=== PATIENT | female | born 1985 | race Hispanic/Latino ===

== ENCOUNTER 2017-03-10 00:39 | Inpatient (IN) | payer MEDICAID ==
[2017-03-10] VITALS (9 sets, daily range): BP systolic 99–110; BP diastolic 45–56; PULSE 75–83; RESP 14–16; O2SAT 99–100
[~2017-03-10] VITALS: Ht 157.5 cm; Wt 66.7 kg
[~2017-03-10 00:39] MED LIST: DOCU-41 PO; HYDR-3479 PO; IBUP800T28 PO; NOMED
[2017-03-10] MEDS ORDERED: Lactated Ringer's 1,000 ML IV PRN (01:19)
[2017-03-10] MEDS ORDERED: Carboprost 250 mCg/mL Inj IM PRN ×2 (01:20→07:30)
[2017-03-10] MEDS ORDERED: Hemorrhage Kit, Post Partum XX ONE ×2 (01:20→07:30)
[2017-03-10] MEDS ORDERED: Ondansetron 2 mg/mL 2 mL Inj IVPUSH PRN ×3 (01:20→19:05)
[2017-03-10] MEDS ORDERED: Sodium Chloride LOK Flush 10 mL Syringe IVFLUSH PRN (01:20)
[2017-03-10] MEDS ORDERED: Oxytocin 30 Units/500 mL LR 30 UNITS in IV Premix 1 EACH IV PRN ×2 (01:20→07:30)
[2017-03-10] MEDS ORDERED: Methylergonovine 0.2 mg/mL Inj IM PRN ×2 (01:20→07:30)
[2017-03-10] MEDS ORDERED: Oxytocin 10 Unit/mL Inj IM PRN ×2 (01:20→07:30)
[2017-03-10 01:58] LABS: Mean Corpuscular Hemoglobin 31.2 pg (27.0-35.0); Mean Corpuscular Volume 91.5 fL (81-100)
[2017-03-10] MEDS ORDERED: CHOL400T30 PO (02:14)
[2017-03-10] MEDS ORDERED: PREN-12 PO (02:14)
[2017-03-10] MEDS: fentaNYL-PF 50 mCg/mL 2 mL Inj IVPUSH PRN ×2 (05:54→06:39)
[2017-03-10] MEDS ORDERED: oxyCODONE-Acetamin 5-325 mg Tablet PO PRN ×2 (07:30→19:05)
[2017-03-10] MEDS ORDERED: Witch Hazel-Glycerin Pads TOPICAL PRN (07:30)
[2017-03-10] MEDS ORDERED: LANOlin HPA 7 Gm Ointment TOPICAL PRN (07:30)
[2017-03-10] MEDS ORDERED: Benzocaine (Dermoplast) 20% 60 Gm Spray TOPICAL PRN (07:30)
[2017-03-10 07:38] LABS: Mean Corpuscular Hemoglobin 31.4 pg (27.0-35.0); Mean Corpuscular Volume 92.8 fL (81-100)
[2017-03-10] MEDS: Ascorbic Acid 500 mg Tablet PO SCH (08:00)
--- NOTE | 2017-03-10 08:11 | NUR ---
Three total doses of fentanyl 100mcg administered to pt from [address]. This was during delivery of the placenta, two fentanyl vials were scanned, one was not scanned. Rodo MOTTA witnessed the 627 and 634 fentanyl administrations.
[2017-03-10] MEDS ORDERED: Phenylephrine/NS-PF 100 mCg/mL 5 mL Syringe IVPUSH ONE (09:33)
--- NOTE | 2017-03-10 09:35 | OP ---
[address] [address] OPERATIVE REPORT PATIENT: CHRIS UPTON : 1985 MR#: [id number] ADMIT: 03/10/2017 JOB ID: [id number] DATE OF SURGERY: 03/10/2017 SURGEON: Juancarlos Neil M.D. PREOPERATIVE DIAGNOSIS(ES): A 31-year-old 4, para 3, at 39 weeks, active labor, spontaneous rupture of membranes. POSTOPERATIVE DIAGNOSIS(ES): 1. A 31-year-old 4, para 4, active labor, spontaneous rupture of membranes. 2. Retained placenta. 3. hemorrhage. DELIVERY NOTE: The patient is a 31-year-old 4, para 4 now who came to Labor and Delivery at 2 o'clock in the morning complaining of spontaneous rupture of membranes. The patient was examined. On the pelvic examination, the cervix was 5 cm dilated, 70% effaced, -2 station. Clear amniotic fluid. She was admitted for delivery. The patient was started on Pitocin at 3 o'clock a.m. and by 5 a.m., when the Pitocin was running at 40 units/minute. At 5:55 a.m. she progressed to full dilation. She has been pushing for 5 minutes and she underwent spontaneous vaginal delivery at 6:10 a.m., delivered a female with weight 2865 g, Apgars 6 at one minute and 9 at five minutes. She had a small first degree midline laceration that was repaired with 2-0 Vicryl. The placenta did not deliver. After 30 minutes of waiting, placenta was still undelivered. The patient had some hemorrhage. She received two doses of IV fentanyl half an hour apart 100 mcg for pain relief. The umbilical cord was examined and found to be a three-vessel cord. 50 units of Pitocin were diluted in 60 cc of normal saline and the solution was injected through the Angiocath into the umbilical vein. After that, the vein was clamped. The umbilical cord was clamped and let to stay for 15 minutes. At 7:03 a.m., the placenta was delivered in one piece without any complications. The patient received 0.2 mg of Methergine IM to control the bleeding. The Pitocin was started shortly after delivery of the . Total estimated blood loss was 700 mL. All the instrument and sponge counts were correct x2. The placenta was re-examined one more time, found to be intact and was sent to Pathology.
[2017-03-10] MEDS ORDERED: Lactated Ringer's 2,000 ML IV SCH (10:20)
--- NOTE | 2017-03-10 10:22 | HP ---
[address] [address] HISTORY AND PHYSICAL PATIENT: CHRIS UPTON : 1985 MR#: [id number] ADMIT: 03/10/2017 JOB ID: [id number] HISTORY OF PRESENT ILLNESS: The patient is a 31-year-old 4, para 3 at 38 weeks and five days comes to Labor and Delivery with complaint of contractions. She is having some vaginal spotting. On a monitor, heart rate tracing is reactive, category 1. Baseline 140 beats per minute. The patient had care with the [facility], it was relatively uncomplicated. She had marginal placenta previa that during was resolved. Her hemoglobin A1c was 6% at the beginning of , but 1 hour glucose tolerance testing was normal. SURGICAL HISTORY: History of two spontaneous vaginal deliveries at term, one in 2006, one in 2013. Both of them at 38+ weeks. Uncomplicated. SOCIAL HISTORY: The patient denies smoking, alcohol, illicit recreational drug use. ALLERGIES: NKDA. FAMILY HISTORY: Diabetes. PHYSICAL EXAMINATION: Vital signs: Blood pressure 110/62, temperature 36.6, pulse 80, respiratory rate 16. General: She is awake, alert, oriented x3. HEENT: PERRLA. Chest: Clear. Good respiratory effort. Cardiovascular: Regular rate and rhythm. Abdomen is gravid. Nondistended. Tender with contractions that occur at frequency of each 5-6 minutes. Pelvic examination: The cervix is 5 cm dilated, 80% effaced, -2 station. Slight bleeding, ruptured membranes. ROM testing is positive. Amniotic fluid is clear. Extremities: No pitting edema. ASSESSMENT AND PLAN: 1. A 31-year-old 3, para 2, at 38 weeks and five days spontaneous rupture of membranes. 2. Active labor being admitted for delivery. labs were reviewed. Labor and delivery labs were sent. IV hydration will be started with lactated Ringer at 125 mL/hour. The patient declines epidural. Pain management will be provided with fentanyl p.r.n. Augmentation with Pitocin will be started as needed. We will anticipate spontaneous vaginal delivery.
[2017-03-10] MEDS: Lactated Ringer's 1,000 ML IV SCH ×3 (14:31→23:30)
--- NOTE | 2017-03-10 15:55 | PCM.PNOBPP ---
Subjective Date of Service Mar 10, 2017 Post : Spontaneous Vaginal Delivery Lochia: Light Gastrointestinal: Good Appetite, No N/V Labs Laboratory Tests 03/10/17 07:27: White Blood Count 12.0, Red Blood Count 3.73, Mean Corpuscular Volume 92.8, Mean Corpuscular Hemoglobin 31.4, Mean Corpuscular Hemoglobin Concent 33.8, Red Cell Distribution Width 13.1, Platelet Count 143 03/10/17 11:56: Hemoglobin 10.4, Hematocrit 31.2 Laboratory Tests 72 Hours Test 03/10/17 01:45 03/10/17 07:27 03/10/17 11:56 White Blood Count 10.1th/mm3 (3.8-10.1) 12.0th/mm3 (3.8-10.1) Red Blood Count 4.23mil/mm3 (3.90-5.20) 3.73mil/mm3 (3.90-5.20) Hemoglobin 13.2g/dL (12.0-15.6) 11.7g/dL (12.0-15.6) 10.4g/dL (12.0-15.6) Hematocrit 38.7% (35.0-46.0) 34.6% (35.0-46.0) 31.2% (35.0-46.0) Mean Corpuscular Volume 91.5fL (81-100) 92.8fL (81-100) Mean Corpuscular Hemoglobin 31.2pg (27.0-35.0) 31.4pg (27.0-35.0) Mean Corpuscular Hemoglobin Concent 34.1% (32.0-37.0) 33.8% (32.0-37.0) Red Cell Distribution Width 13.2% (12.3-15.4) 13.1% (12.3-15.4) Platelet Count 158bil/L (150-400) 143bil/L (150-400) Exam Vital Signs Vital Signs 109/61, 90, 14, 36.5 Vital Signs: VS reviewed, stable Exam Abdomen: Fundus firm Extremities: Edema 1+ Lungs: Clear to Auscultation, Clear to Percussion Heart: Regular Rate/Rhythm, Normal S1, Normal S2 General: Alert, Oriented X3 OB Post Assessment/Plan Assessment The patient is a 31-year-old 4, para 4 1. PPD#0 S/P 2. Desires sterilization. Sterilization consent was signed at the office more than 30 days ago. Today earlier in the morning and again shortly prior to schedule surgery patient was counseled again with transition assistant of grain mill products inspector. R/B/A of tubal ligation were discussed with pt in details risk includes and not limited to risk of regret as tubal ligation is permanent, risk of failure, risk of ectopic , risk of need to hormonal treatment in future is she develops heavy menses. Reviewed risk of surgery which includes and not limited to risk of anesthesia, infection, bleeding, injury to other organs and second surgery. R /B/A of of LARCS and male sterilization were discussed. Informed surgical consent was signed today. Patient desires to proceed with tubal ligation as scheduled today. Surgery is coordinated with Dr.Porter , for repair of umbilical hernia. 3. Anemia secondary to hemorrhage, asymptomatic, repeat H/H 10.4/31% . VSS. Mitchell Donovan MD Mar 10, 2017 15:55
[2017-03-10] MEDS ORDERED: Lactated Ringer's 1,000 ML IV ONE ×2 (16:42→17:44)
[2017-03-10] MEDS ORDERED: CeFAZolin 2 Gm/50 mL D5W Duplex Bag IV ONE (16:45)
[2017-03-10] MEDS ORDERED: Lactated Ringer's 1,000 ML IV SCH (17:08)
[2017-03-10] MEDS ORDERED: Lactated Ringer's 500 ML IV PRN (17:08)
[2017-03-10] MEDS ORDERED: MetoCLOpramide 5 mg/mL 2 mL Inj IVPUSH PRN (17:10)
[2017-03-10] MEDS ORDERED: fentaNYL-PF 50 mCg/mL 2 mL Inj IVPUSH PRN (17:10)
[2017-03-10] MEDS ORDERED: Atropine 0.4 mg/mL Inj IVPUSH PRN (17:10)
[2017-03-10] MEDS ORDERED: HYDROmorphone 1 mg/mL Inj IVPUSH PRN (17:10)
[2017-03-10] MEDS ORDERED: Dexamethasone 4 mg/mL Inj IVPUSH PRN (17:10)
[2017-03-10] MEDS ORDERED: EPHEDrine Sulfate 50 mg/mL Inj IVPUSH PRN (17:10)
[2017-03-10] MEDS ORDERED: Phenylephrine 10,000 mCg/mL Inj IVPUSH PRN (17:10)
--- NOTE | 2017-03-10 17:12 | PCM.HPANE ---
Patient Data Surgeon Admitting Provider:Jeremias Concepcion MD Attending Provider:Jeremias Concepcion MD Primary Care Physician:Lola Rivera MD Other Provider: Reason for Visit Active Labor ACTIVE LABOR Ht/WT & BMI Body Mass Index Allergies Coded Allergies: No Known Allergies (Verified , 06/15/13) Past Anesthesia History Anesthesia History: Denies:: Abnormal Airway, Anesthesia Reactions, Difficult Intubation, Fam Anesthesia Reaction, Fam Malignant Hypertherm, Malignant Hyperthermia Diabetes History Hx Diabetes?: No MRSA MRSA: No Medications Hypertension Medication: No Home Meds Incl Beta Ashkan: No Active Scripts Docusate Sodium (Colace)100 Mg [id number] Mg PO TID PRN For Constipation #60 CAPSULE Ref 1 Prov:Raghav Clarke MD 12/28/13 Ibuprofen 800 Mg [id number] Mg PO QID PRN For Pain #50 TABLET Ref 1 Prov:Raghav Clarke MD 12/28/13 Hydrocodone/Acetaminophen (Vicodin 5-300 mg Tablet)1 Each Tablet1-2 Each PO Q6 PRN For Pain #40 TABLET Ref 0 Prov:Raghav Clarke MD 12/28/13 Reported Medications Cholecalciferol (Vitamin D3) (Vitamin D)400 Unit [id number] Unit PO DAILY #1 BOTTLE Ref 0 03/10/17 Vit W-Ca,Fe,FA(<1 mg) ( Formula)1 Each Tablet1 Each PO DAILY 03/10/17 No Historical Medication Ea 06/15/13 History History of ENT Problems?: No HEENT History: Denies:: Abnormal Airway Cataracts Difficult Intubation Dysphagia Glaucoma Hearing Problem Sinus Problem TMJ Denture Type: None Teeth Condition: Within Normal Limits Hx of Heart Problems?: No Cardiovascular History: Denies:: AICD Abdominal Aortic Aneurism Atrial Fibrillation Cardiac Surgery Chest Pain Congestive Heart Failure Coronary Artery Disease Edema Heart Murmur Hypertension Irregular Heartbeat Pacemaker Peripheral Vascular Rheumatic Fever Thrombophlebitis Valvular Heart Disease Hx of Respiratory Problem?: No Respiratory History: Denies:: Asthma COPD Chest Surgery Cough Dyspnea Emphysema Hemoptysis Oxygen Administration Pneumonia Pulmonary Embolism Tuberculosis Use of C-PAP Machine Use of Inhalers / NEBS Hx Neurologic Problems?: No Neurological History: Denies:: Alzheimer's Disease CVA Dementia Dizziness Headaches Multiple Sclerosis Parkinson's Disease Peripheral Neuropathy Seizures TIA Hx of GI Problems?: No Hx of Problems?: No Other History/Comment Post- <24 hours Hx Musculoskeletal Problems?: No Hx Surgeries?: No Hx Any Other Health Problems?: No Hx Alcohol Use: No Smoking Status: Never Smoker Stop/Bang ARASELI Risk Assessment: Low Risk, <3 Yes Risk Assessment Category Category 1A: Patient has history of documented sleep apnea, and HAS NOT received any narcotic, sedative or anesthesia administration during this stay. Category 1B: Patient has history of documented sleep apnea, and HAS received any narcotic , sedative or anesthesia administration during this stay Category 2: Patient has SUSPECTED Obstructive Sleep Apnea, and HAS received any narcotic , sedative or anesthesia administration during this stay. Category 3: Patient has SUSPECTED Obstructive Sleep Apnea and HAS NOT received narcotic, sedative or anesthesia administration during this stay. Category 4: Outpatient in Procedural Areas with known sleep apnea or who screen positive for High Risk via the STOP/BANG questionnaire. Exam Exam General Appearance: Alert, Oriented X3, Cooperative, No Acute Distress HEENT/AIRWAY: MP 2 Lungs: Clear to Auscultation, Normal Air Movement Heart: Exam Unremarkable, Regular Rate/Rhythm, No Murmurs/Rubs/Gallops Meds/Labs/Diagnostics Admission Meds Current Medications Lactated Ringer's (Lr) 1,000 ml @ 125 mls/hr Q8H IV Last administered on t 14:31; Start 03/10/17 at 07:30 Labs Test 03/10/17 07:27 03/10/17 11:56 White Blood Count 12.0th/mm3 (3.8-10.1) Red Blood Count 3.73mil/mm3 (3.90-5.20) Mean Corpuscular Volume 92.8fL (81-100) Mean Corpuscular Hemoglobin 31.4pg (27.0-35.0) Mean Corpuscular Hemoglobin Concent 33.8% (32.0-37.0) Red Cell Distribution Width 13.1% (12.3-15.4) Platelet Count 143bil/L (150-400) Hemoglobin 10.4g/dL (12.0-15.6) Hematocrit 31.2% (35.0-46.0) Plan Impression Patient chart reviewed, patient interviewed and anesthestic plan with risks, benefits, and alternatives discussed, and informed consent obtained. NPO per Anesth. Guidelines: Yes ASA Physical Status: ASA2 Mod Systemic Disease Anesthetic Plan: SAB Bene/Risks/Altern/Consents: Yes HP Complete Prior to Induction: Yes Other Consented via forestry farm laborer. Patient was informed of safety profile of spinal anesthesia over general anesthesia given the still- present physiologic changes of , This is an elective procedure and she wishes to proceed after all of her question have been answered. Yohannes New MD Mar 10, 2017 15:54
[2017-03-10] MEDS ORDERED: Bupivacaine-MPF 0.5% W/EPI 30 mL Inj INJ ONE (17:32)
--- NOTE | 2017-03-10 18:25 | PCM.SURGOP ---
Surgical Operative Report Date of Service: Mar 10, 2017 Pre Operative Diagnosis Umbilical hernia Post Operative Diagnosis Umbilical hernia, 2 cm defect Procedure: Primary open umbilical hernia repair Surgeon and Pouncing Machine Operator: Surgeon: Shasha Willis MD Assistants: Jeremias Concepcion MD; Mitchell Donovan MD; Coretta Montez MS3 Indication for Procedure This is a 31-year-old female who I met one month ago when she was . She had a symptomatic small umbilical hernia. The request was made that after delivery, at the time of tubal ligation, that umbilical hernia repair would be performed simultaneously. The patient gave yesterday, was scheduled for tubal ligation today, and therefore an umbilical hernia repair was performed as well. Findings: 2 cm umbilical hernia defect. There was an additional fascial incision made just below this for the tubal ligation, and these two defects were connected and closed primarily. Procedure Details The patient was brought to the operating room and placed in supine position. General anesthesia with an LMA was smoothly induced. A warming blanket and SCDs were placed. Antibiotics were infused. The operative field was prepped and draped in sterile fashion. A pause was performed to confirm the correct patient, procedure, site, and side. A transverse infraumbilical incision had been made by the gynecology team, and a defect was present in the fascia just below the umbilical hernia defect from the tubal ligation. The hernia defect was palpated at the level of the umbilicus, and was found to be approximately 2 cm in size. The 2 defects were connected. The hernia contained omental fat. The hernia sac and omentum was dissected off the fascia and reduced. The fascia was then closed primarily with several interrupted 2-0 silk sutures from left to right. An umbilicoplasty was performed using 3-0 Vicryl to connect the umbilical stalk to the fascia. Subcutaneous tissue was closed with 3-0 Vicryl stitches. The skin was closed with a running 4-[address] Concepcion and Dr. Donovan. Marcaine 0.5 % with epinephrine was infused in the skin for postoperative analgesia. A sterile dressing was placed. The patient was awakened from general anesthesia and taken to postoperative care unit in good condition. Complications There were no periprocedural complications identified. Surgical Specimen Removed: No Specimen sent to Pathology: No Anesthetic Plan: GA, SAB Grafts, Implants: None Output, Estimated Blood Loss: 2 (ml) Blood Administration during rebolledo: No Shasha Willis MD Mar 10, 2017 18:25
--- NOTE | 2017-03-10 18:41 | PCM.ANEP1 ---
Post Anesthesia PACU Phase 1 Assessment Vital Signs VSS. See RN notes for values. Vital Signs Date Time Temp Pulse Resp B/P Pulse Ox O2 Delivery O2 Flow Rate FiO2 03/10/17 18:34 37.3 78 15 110/56 100 Room Air Anesthetic Administered: SAB Level of Alertness: Awake, talking ADAMS's with Equal Strength: No (residual SAB) Pain: No Nausea or Vomiting: No CV Function & Hydration Stable: Yes Airway Device: Oxygen Delivery: Room Air Lungs: Clear to Auscultation, Normal Air Movement Dermatome Level: T6 (Xyphoid Process) PACU Phase 2 Assessment Complications: No Follow up Care: N/A Patient Instructions Provided: N/A Yohannes New MD Mar 10, 2017 18:41
[2017-03-10] MEDS ORDERED: Alum-Mag Hydrox-Simeth 30 mL Suspension PO PRN (19:05)
[2017-03-10] MEDS ORDERED: Senna-Docusate 8.6-50 mg Tablet PO PRN (19:05)
[2017-03-10] MEDS ORDERED: Acetaminophen IV 1,000 MG in IV Premix 1 EACH IV PRN (19:05)
[2017-03-10] MEDS ORDERED: Promethazine 50 mg Rectal Suppository RECTAL PRN (19:10)
--- NOTE | 2017-03-10 19:59 | OP ---
[address] [address] OPERATIVE REPORT PATIENT: CHRIS UPTON : 1985 MR#: [id number] ADMIT: 03/10/2017 JOB ID: [id number] DATE OF SURGERY: 03/10/2017 PREOPERATIVE DIAGNOSIS(ES): 1. Day #zero undesired fertility. Desires sterilization. 2. Umbilical hernia. POSTOPERATIVE DIAGNOSIS(ES): 1. Day #zero undesired fertility. Desires sterilization. 2. Umbilical hernia. PROCEDURE: tubal ligation via mini-laparotomy and umbilical hernia repair by Dr. Willis. SURGEON: Mitchell Donovan MD for the tubal ligation part of the procedure. SURGEON: Shasha Willis MD for the umbilical hernia repair part of the procedure. WHEEL ALIGNMENT TECHNICIAN: 1. Jeremias Concepcion MD 2. Coretta Montez, medical student 3rd year INDICATION FOR PROCEDURE: This is a 31-year-old 4, para four, status day #zero, post spontaneous vaginal delivery complicated by hemorrhage with anemia asymptomatic and vital signs stable. The patient desires sterilization. Sterilization consent was signed at the office more than 30 days ago. Today, earlier in the morning after the delivery, the patient was counseled regarding the sterilization surgery, and again the patient was counseled shortly prior to the scheduled surgery. The assistance of the underwater trapper was used to consent the patient. The risks and benefits and alternatives of tubal ligation were discussed with the patient in detail. Risks include, and not limited to, risk of regret as tubal ligation is a permanent procedure, risk of failure, risk of ectopic , risk of the need for hormonal treatment in the future in case she starts to have heavy menstrual cycles. Reviewed risks of surgery, which include and not limited to, risk of anesthesia, infection, bleeding, injury to other organs, and the need of 2nd surgery if complication encountered. Risk, benefits, and alternatives of long-acting reversible contraception and male sterilization were discussed in detail. All questions were answered. The patient desires to proceed with tubal ligation as scheduled today. Informed consent was signed. Surgery was coordinated with Dr. Willis, who consulted antenatally for repair of umbilical hernia. ANESTHESIA: Spinal. IV FLUIDS: 500 mL URINE OUTPUT: Bladder was straight cathed prior to the procedure. ESTIMATED BLOOD LOSS: 50 mL. FINDINGS: The uterus fundus was approximately two fingerbreadths below the umbilicus. Normal fallopian tubes bilaterally. Normal left ovary. Right ovary was not visualized. COMPLICATIONS: None. SPECIMENS: Partial segment of the left and right fallopian tubes. PROCEDURE: After informed consents were obtained, the patient was taken to the operation room. She was placed under spinal anesthesia, then she was placed in supine position. She was draped and prepped in the usual sterile fashion for abdominal procedures. Infraumbilical skin incision was made with a scalpel and was carried down to the fascia with blunt and sharp dissection. The fascia was grasped with Allis clamps and was brought up to the incision after clearing the subcutaneus layer. A fascial incision was made with scissors and the peritoneum was identified and brought up to the incision with hemostats. An area clear of vascularity and adhesions was identified and the peritoneum was entered sharply. The peritoneal opening was extended with blunt dissection. Retractors were used to visualize the intraperitoneal cavity, then the bowel was packed out of the incision with a single mini lap tagged with hemostats. The patient was tilted to the right and the fundus was identified and traced out to the fimbria. That was grasped with Jasper clamps and brought out of the incision. The middle segment of the tube was identified, and an area clear of vascularity in the mesosalpinx was identified, and a window was created with Bovie cautery. The proximal and distal ends of the middle segment of the tube were double ligated with 2-0 plain gut suture and the double ligated segment was excised. The ends of the remaining stumps were examined and hemostasis was ensured. Then attention was turned to the right fallopian tube. After removing the mini lap sponge, the patient was tilted to the left. A mini lap sponge was placed in the right gutter to pack the bowel away from incision field. The right fallopian tube was traced out to the fimbria and brought out to the incision. An area clear of vascularity in the mesosalpinx was identified and a window was created with Bovie cautery. The middle segment of the tube was double ligated with 2-0 plain gut suture material and the middle segment was excised. The ends of the remaining stumps of the tube were examined and hemostasis was ensured. The remaining stumps of the tubes were returned back to the abdomen and were visualized and found to be hemostatic. The mini lap sponge was removed from the abdomen. Then, at this point the hernia repair part of the procedure was performed by Dr. Willis. Please refer to Dr. Willis's dictation for details. Then, I performed the skin closure with 4-0 Monocryl after completion of the hernia repair. All sponge, needle, and instrument counts were correct. The skin was injected with 0.5 Marcaine with epinephrine for postop analgesia. A sterile dressing was applied. The patient tolerated the procedure well and was transferred to the postoperative recovery suite. An nurse practitioner physician assistant was required for retraction and exposure and safe completion of the procedure. I, Mitchell Donovan MD was present and scrubbed for the entire procedure.
[2017-03-10] MEDS: Senna-Docusate 8.6-50 mg Tablet PO SCH (20:30)
[2017-03-11] MEDS: Ascorbic Acid 500 mg Tablet PO SCH ×2 (00:48→08:27)
[2017-03-11 07:30] LABS: BASOPHILS % (AUTO) 0.1 % (0-3); EOSINOPHILS % (AUTO) 0.5 % (0-5); MONOCYTES % (AUTO) 10.3 % (4-12); Mean Corpuscular Hemoglobin 31.6 pg (27.0-35.0); Mean Corpuscular Volume 94.4 fL (81-100); NEUTROPHILS % (AUTO) 64.7 % (40-74); Platelet Count 139 bil/L (150-400)
[2017-03-11] MEDS: Lactated Ringer's 1,000 ML IV SCH (07:30)
[2017-03-11] MEDS: Senna-Docusate 8.6-50 mg Tablet PO SCH (08:28)
--- NOTE | 2017-03-11 09:22 | PCM.DIOB ---
Obstetrical Disch Instruction Date of Service: Mar 11, 2017 Dates of Hospitalization Date of Hospital Admission Mar 10, 2017 at 01:14 Providers Admitting Physician: Jeremias Concepcion MD Primary Care Physician: Lola Rivera MD Attending Physician: Jeremias Concepcion MD Additional Instructions Discharge Instructions Discharge diagnosis: PPD#1 Status post and tubal ligation and umbilical hernia repair. hemorrhage Post anemia. Disposition: home. Discharge Condition: stable. Diet Discharge Diet: No restrictions Activity Discharge Activity-General: Pelvic Rest for 6 weeks (no sex, no tampon and no douching), Balance rest and activity, No lifting >10 pounds for 4-6 weeks Dressing and Incisional Care Hygiene: May shower, Wash incision with soap & water (then keep incision dry ) Mitchell Donovan MD Mar 11, 2017 09:22
--- NOTE | 2017-03-11 09:24 | PCM.DC.OB ---
Obstetrical Discharge Summary Date of Service Mar 11, 2017 Date of hospital admission Mar 10, 2017 at 01:14 Providers Admitting Physician: Jeremias Concepcion MD Primary Care Physician: Lola Rivera MD Attending Physician: Jeremias Concepcoin MD Hospital Course: DELIVERY DISCHARGE SUMMARY PPD#1 Status post and tubal ligation and umbilical hernia repair. hemorrhage Post anemia asymptomatic, VSS , repeat H/H stable. COMPLICATED WITH: 1. OUTCOME: DISCHARGE DAY EXAM: Postoperative day number 1, patient is ambulating, tolerating regular diet without nausea or vomiting and voiding without difficulty. Pain was well controlled. No chest pain, no headache or change in vision. VS: General: Alert, Oriented X3 Lungs: Clear to Auscultation, Clear to Percussion Heart: Regular Rate/Rhythm, Normal S1, Normal S2 Abdomen: Fundus firm Surgical Wound : Incision General Appearance: Steri Strips, Sutures, Intact, Well Approximated, Incision Healing, No Erythemia, No Discharge Extremities: No tenderness/swelling, Edema 1+ Lochia: normal. LABS: Laboratory Tests 72 Hours Test 03/10/17 01:45 03/10/17 07:27 03/10/17 11:56 03/11/17 07:01 White Blood Count 10.1th/mm3 (3.8-10.1) 12.0th/mm3 (3.8-10.1) 10.9th/mm3 (3.8-10.1) Red Blood Count 4.23mil/mm3 (3.90-5.20) 3.73mil/mm3 (3.90-5.20) 2.66mil/mm3 (3.90-5.20) Hemoglobin 13.2g/dL (12.0-15.6) 11.7g/dL (12.0-15.6) 10.4g/dL (12.0-15.6) 8.4g/dL (12.0-15.6) Hematocrit 38.7% (35.0-46.0) 34.6% (35.0-46.0) 31.2% (35.0-46.0) 25.1% (35.0-46.0) Mean Corpuscular Volume 91.5fL (81-100) 92.8fL (81-100) 94.4fL (81-100) Mean Corpuscular Hemoglobin 31.2pg (27.0-35.0) 31.4pg (27.0-35.0) 31.6pg (27.0-35.0) Mean Corpuscular Hemoglobin Concent 34.1% (32.0-37.0) 33.8% (32.0-37.0) 33.5% (32.0-37.0) Red Cell Distribution Width 13.2% (12.3-15.4) 13.1% (12.3-15.4) 13.1% (12.3-15.4) Platelet Count 158bil/L (150-400) 143bil/L (150-400) 139bil/L (150-400) Neutrophils (%) (Auto) 64.7% (40-74) Lymphocytes (%) (Auto) 23.7% (14-46) Monocytes (%) (Auto) 10.3% (4-12) Eosinophils (%) (Auto) 0.5% (0-5) Basophils (%) (Auto) 0.1% (0-3) Test 03/11/17 12:00 Hemoglobin 9.1g/dL (12.0-15.6) Hematocrit 27.5% (35.0-46.0) labs: Disposition: home. Discharge Condition: stable. Diet Discharge Diet: No restrictions Activity Discharge Activity-General: Pelvic Rest for 6 weeks (no sex, no tampon and no douching), Balance rest and activity, No lifting >10 pounds for 4-6 weeks Dressing and Incisional Care Hygiene: May shower, Wash incision with soap & water (then keep incision dry ) ([Ascorbic Acid]) 500 MG TABLET 500 MG PO BIDWM Prescribed by: MELINDA DONOVAN MD Cholecalciferol (Vitamin D3) (Vitamin D) 400 Unit Tablet 400 UNIT PO DAILY ( Reported) Last Taken: Unknown Dose on 03/09/17 0900 Docusate Sodium (Colace) 100 Mg Capsule 100 MG PO BID PRN PRN For Constipation Prescribed by: MELINDA DONOVAN MD Ferrous Sulfate (Feosol) 325 Mg Tablet 325 MG PO BIDWM Prescribed by: MELINDA DONOVAN MD Ibuprofen (Ibuprofen) 600 Mg Tablet 600 MG PO Q6H PRN PRN For Mild Pain Prescribed by: MELINDA DONOVAN MD Vit W-Ca,Fe,FA(<1 mg) ( Formula) 1 Each Tablet 1 EACH PO DAILY (Reported) Last Taken: Unknown Dose on 03/09/17 0900 oxyCODONE-Acetaminophen 5-325 mg ( oxyCODONE-Acetaminophen 5-325 mg) 1 Each Tablet 1-2 TAB PO Q4H PRN PRN For Moderate Pain Prescribed by: MELINDA DONOVAN MD Discontinued Medications Docusate Sodium (Colace) 100 Mg Capsule 100 MG PO TID PRN PRN For Constipation Prescribed by: ADITI WEISS MD Hydrocodone/Acetaminophen (Vicodin 5-300 mg Tablet) 1 Each Tablet 1-2 EACH PO Q6 PRN PRN For Pain Prescribed by: ADITI WEISS MD Ibuprofen (Ibuprofen) 800 Mg Tablet 800 MG PO QID PRN PRN For Pain Prescribed by: ADITI WEISS MD No Historical Medication (No Historical Medication) Ea (Reported) Melinda Donovan MD Mar 11, 2017 09:23
[2017-03-11] MEDS ORDERED: FERR-74 PO (09:28)
[2017-03-11] MEDS ORDERED: OXYC1TAB24 PO (09:28)
[2017-03-11] MEDS ORDERED: DOCU-41 PO (09:28)
[2017-03-11] MEDS ORDERED: Ascorbic Acid PO (09:28)
[2017-03-11] MEDS ORDERED: IBUP-1827 PO (09:28)
[2017-03-11 13:50] VITALS: BP 91/53; PULSE 81; RESP 16
[2017-03-11] MEDS ORDERED: Oxytocin 10 Unit/mL Inj ONE (15:39)
[2017-03-11] MEDS ORDERED: Methylergonovine 0.2 mg/mL Inj ONE (15:39)
--- NOTE | 2017-03-16 09:31 | PATH ---
SURGICAL PATHOLOGY Attending Physician:Jeremias Concepcion MD CASE STATUS: Signed Out PATIENT NAME: CHRIS UPTON PID: [id number] : 1985 DATE COLLECTED:03/10/2017 22:58 SPECIMEN: 1: Placenta 2: Fallopian Tube, Sterilization 3: Fallopian Tube, Sterilization CLINICAL HISTORY: ACTIVE LABOR OF TERM RETAINED PLACENTA S/P DELIVERY, DESIRES STERILIZATION 1). PLACENTA 2). RIGHT FALLOPIAN TUBE 3). LEFT FALLOPIAN TUBE FINAL DIAGNOSIS: 1.PLACENTA: CHRISTOPHER PLACENTA WITH PROMINENT INTERVILLOUS FIBRIN. NO INFARCTS OR CHORIOAMNIONITIS IDENTIFIED. 2.RIGHT FALLOPIAN TUBE: SEGMENT OF FALLOPIAN TUBE WITH NO PATHOLOGIC ALTERATIONS. 3.LEFT FALLOPIAN TUBE: SEGMENT OF FALLOPIAN TUBE WITH NO PATHOLOGIC ALTERATIONS. ICD10 Z30.2 O43.8 GROSS DESCRIPTION: (1) The specimen is received in formalin, labeled with the patient requisition number, and consists of an intact placenta (442 g, 18.5 x 15.5 x 3.8 cm), membranes, and umbilical cord (length-2.2 cm, diameter-1.3 x 0.6 cm). The membranes are ruptured 2.3 cm from the edge of the placenta and are pale patel and semi-translucent. The umbilical cord is attached 3.5 cm from the edge of the placenta and contains 3 vessels. The surface is firm and bosselated with an area of diffuse pale-patel opacities (0.1 cm-2.2 cm) involving approximately 25% of the surface. No evidence of meconium is identified. The maternal surface is dark maroon, focally yellow-orange and fibrous with normal cotyledon formation. The placental disc is spongy and focally firm. No masses or lesions are identified. Section code: (1A) edge of placenta with membranes, umbilical cord; (1B-1C, 1D-1E, 1F-1G, 1H) placenta, 4 full thickness sections. (2) The specimen consists of a non-fimbriated segment of fallopian tube (length-1.1 cm, diameter-0.2 cm). The serosa is harrell-purple smooth and shiny. The lumen is patel and unremarkable. 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 (3) The specimen consists of a non-fimbriated segment of fallopian tube (length-1.5 cm, diameter-0.4 cm). The serosa is harrell-purple smooth and shiny. The lumen is patel and unremarkable. 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 03/11/17 JM MICRO DESCRIPTION: See diagnosis. ICD-9 CODES: CPT CODES: 1: 50921 2: 51213 3: 94541 Electronically Signed Out Prema Varela MD [facility] [address], [place] [address] Technical component performed at [facility], [facility] [address], [place], [address]
== END 2017-03-11 15:40 | disposition home or self-care (01) | DRG 767 ==
LOC: FBCO 00:39 → FBC 01:14
PROVIDERS: ADMIT Obstetrics & Gynecology; ATTEND Legal Medicine
PROC: 0WQF0ZZ Repair Abdominal Wall, Open Approach (ICD-10-PCS; 2017-03-10)
PROC: 0HQ9XZZ Repair Perineum Skin, External Approach (ICD-10-PCS; 2017-03-10)
PROC: 10E0XZZ Delivery of Products of Conception, External Approach (ICD-10-PCS; principal; 2017-03-10 16:30)
PROC: 0UB70ZZ Excision of Bilateral Fallopian Tubes, Open Approach (ICD-10-PCS; 2017-03-10 16:30)
DX: O70.0 First degree perineal laceration during delivery (principal); Z37.0 Single live birth; D64.9 Anemia, unspecified; O67.8 Other intrapartum hemorrhage; Z3A.39 39 weeks gestation of pregnancy; O90.81 Anemia of the puerperium; K42.9 Umbilical hernia without obstruction or gangrene; Z30.2 Encounter for sterilization